=== PATIENT | male | born 1970 | race Caucasian/White ===

== ENCOUNTER → 2017-11-05 16:51 | Emergency (ER) | payer OTHER | END | disposition left against medical advice (07) | LOC: M ED 16:51 | DX: Z53.29 Procedure and treatment not carried out because of patient's decision for other reasons (principal) ==

== ENCOUNTER → 2022-05-19 | Outpatient (REF) | payer OTHER ==
[2022-05-19 17:21] LABS: BASO # 0.1 10^3/uL (0.0-0.2); BASO % 0.6 % (0.0-1.0); EOS # 0.2 10^3/uL (0.0-0.5); EOS % 2.6 % (0.0-3.0); HEMATOCRIT 44.8 % (42.0-52.0); HEMOGLOBIN 14.9 g/dl (13.5-17.5); LYMPH # 2.1 10^3/uL (1.5-5.0); LYMPH % 27.4 % (24.0-44.0); MEAN CORPUSCULAR HEMOGLOBIN 29.7 pg (27.0-33.0); MEAN CORPUSCULAR HGB CONC 33.3 g/dl (32.0-36.5); MEAN CORPUSCULAR VOLUME 89.2 fl (80.0-96.0); MONO # 0.4 10^3/uL (0.0-0.8); MONO % 5.7 % (2.0-8.0); NEUTROPHILS # 4.9 10^3/uL (1.5-8.5); NEUTROPHILS % 63.2 % (36.0-66.0); PLATELET COUNT, AUTOMATED 306 10^3/uL (150-450); RED BLOOD COUNT 5.02 10^6/uL (4.30-6.10); WHITE BLOOD COUNT 7.7 10^3/uL (4.0-10.0)
[2022-05-19 17:51] LABS: C REACTIVE PROTEIN QUANTITATIV < 0.40 MG/DL (<1.0)
[2022-05-19 17:52] LABS: ALBUMIN 4.2 G/DL (3.2-5.2); ALKALINE PHOSPHATASE 94 U/L (46-116); ALT/SGPT 35 U/L (7.0-40); AST/SGOT 23 U/L (<34); BILIRUBIN,TOTAL 0.8 MG/DL (0.3-1.2); BLOOD UREA NITROGEN 18 MG/DL (9-23); CALCIUM LEVEL 9.1 MG/DL (8.5-10.1); CARBON DIOXIDE LEVEL 29 MMOL/L (20-31); CHLORIDE LEVEL 104 MMOL/L (98-107); CREATININE FOR GFR 1.06 MG/DL (0.70-1.30); GLOMERULAR FILTRATION RATE > 60.0 (>56); GLUCOSE, FASTING 82 MG/DL (60-100); POTASSIUM SERUM 4.4 MMOL/L (3.5-5.1); SODIUM LEVEL 140 MMOL/L (136-145); TOTAL PROTEIN 7.3 G/DL (5.7-8.2)
[2022-05-19 17:54] LABS: TOTAL 25(OH) VITAMIN D 29.2 NG/ML (20.0-100.0)
[2022-05-19 18:11] LABS: HEPATITIS B SURFACE ANTIGEN NEGATIVE (NEGATIVE)
[2022-05-19 18:25] LABS: ERYTHROCYTE SEDIMENTATION RATE 10 mm/hr (0-20)
[2022-05-19 18:33] LABS: HEPATITIS B CORE ANTIBODY IGM NEGATIVE (NEGATIVE)
== END ==
LOC: M SFHCRHEU 13:59
PROVIDERS: ATTEND Internal Medicine Rheumatology
DX: R76.8 Other specified abnormal immunological findings in serum (principal); M25.50 Pain in unspecified joint; G56.03 Carpal tunnel syndrome, bilateral upper limbs

== ENCOUNTER 2023-01-27 05:15 | Emergency (ER) | payer OTHER ==
[~2023-01-27] VITALS: Ht 172.7 cm; Wt 75.4 kg
[2023-01-27] MEDS ORDERED: KETOROLAC 60MG 2ML VIAL IM ONE (06:40)
[2023-01-27] MEDS ORDERED: LIDOCAINE 5% (LIDODERM) PATCH TD ONE (06:40)
[2023-01-27] MEDS ORDERED: ACETAMINOPHEN TAB 650MG DOSE (2X325MG) PO ONE (06:40)
[2023-01-27] MEDS ORDERED: ASPE4PAD TOP (07:36)
[2023-01-27] MEDS ORDERED: KETO10TAB PO (07:36)
[2023-01-27 07:46] VITALS: BP 140/72; TEMP 96.8; O2SAT 98
== END 2023-01-27 07:49 | disposition home or self-care (01) ==
LOC: M ED 05:15
DX: S33.5XXA Sprain of ligaments of lumbar spine, initial encounter (principal); M51.36 Other intervertebral disc degeneration, lumbar region; Y92.9 Unspecified place or not applicable; Y93.9 Activity, unspecified; Y99.9 Unspecified external cause status; Z79.1 Long term (current) use of non-steroidal anti-inflammatories (NSAID); Z79.899 Other long term (current) drug therapy
CPT/HCPCS: 96372; 99283; J1885

== ENCOUNTER 2023-06-26 09:12 | Emergency (ER) | payer OTHER, SELFPAY ==
[~2023-06-26] VITALS: Ht 172.7 cm; Wt 76.0 kg
[~2023-06-26 09:12] MED LIST: ASPE4PAD TOP; KETO10TAB PO
[2023-06-26] MEDS ORDERED: ROPI1TAB73 (09:25)
[2023-06-26] MEDS ORDERED: GABA-282 (09:25)
[2023-06-26] MEDS ORDERED: OMEP40CA5 (09:25)
[2023-06-26] MEDS ORDERED: MONT10TA97 (09:25)
[2023-06-26] MEDS ORDERED: PSEU30TA86 PO (10:43)
[2023-06-26] MEDS ORDERED: FLON27.5 NARES (10:43)
[2023-06-26 11:04] VITALS: BP 122/77; TEMP 97.4; O2SAT 96
== END 2023-06-26 11:06 | disposition home or self-care (01) ==
LOC: M ED 09:12
DX: J34.89 Other specified disorders of nose and nasal sinuses (principal); R09.81 Nasal congestion; M54.50 Low back pain, unspecified; Z79.891 Long term (current) use of opiate analgesic; Z79.83 Long term (current) use of bisphosphonates; Z79.899 Other long term (current) drug therapy

== ENCOUNTER 2023-07-14 13:31 | Emergency (ER) | payer OTHER, SELFPAY ==
[~2023-07-14] VITALS: Ht 172.7 cm; Wt 75.8 kg
[~2023-07-14 13:31] MED LIST changes: +FLON27.5 NARES; +GABA-282; +MONT10TA97; +OMEP40CA5; +PSEU30TA86 PO; +ROPI1TAB73
[2023-07-14] MEDS: KETOROLAC 30 MG/ML 1ML VIAL IM ONE (17:30)
[2023-07-14] MEDS: LIDOCAINE 5% (LIDODERM) PATCH TD ONE (17:44)
[2023-07-14] MEDS ORDERED: KETO10TAB PO (17:59)
[2023-07-14 18:07] VITALS: BP 129/83; TEMP 97.6; O2SAT 97
== END 2023-07-14 18:14 | disposition home or self-care (01) ==
LOC: M ED 13:31
DX: M51.36 Other intervertebral disc degeneration, lumbar region (principal); K21.9 Gastro-esophageal reflux disease without esophagitis; F17.220 Nicotine dependence, chewing tobacco, uncomplicated; Z79.891 Long term (current) use of opiate analgesic; Z79.83 Long term (current) use of bisphosphonates; Z79.899 Other long term (current) drug therapy
CPT/HCPCS: 96372; 99283; J1885

== ENCOUNTER 2023-08-02 10:12 | Emergency (ER) | payer OTHER ==
[~2023-08-02] VITALS: Ht 172.7 cm; Wt 75.7 kg
[~2023-08-02 10:12] MED LIST changes: -GABA-282; +GABA-282 PO; -MONT10TA97; +MONT10TA97 PO; -OMEP40CA5; +OMEP40CA5 PO; -PSEU30TA86 PO; +PSEU30TA87 PO; -ROPI1TAB73; +ROPI1TAB73 PO
[2023-08-02] MEDS ORDERED: TIZA10TA PO (10:37)
[2023-08-02] MEDS ORDERED: ISOVUE-370 76% 100ML VIAL As Ordered ONE (10:51)
[2023-08-02 11:21] LABS: BASO % 0.5 % (0.0-1.0); EOS # 0.2 10^3/uL (0.0-0.5); EOS % 2.9 % (0.0-3.0); HEMATOCRIT 43.6 % (42.0-52.0); LYMPH # 1.6 10^3/uL (1.5-5.0); LYMPH % 19.8 % (24.0-44.0); MEAN CORPUSCULAR HEMOGLOBIN 31.3 pg (27.0-33.0); MEAN CORPUSCULAR HGB CONC 34.4 g/dl (32.0-36.5); MONO # 0.5 10^3/uL (0.0-0.8); MONO % 6.4 % (2.0-8.0); NEUTROPHILS # 5.6 10^3/uL (1.5-8.5); NEUTROPHILS % 70.2 % (36.0-66.0); PLATELET COUNT, AUTOMATED 284 10^3/uL (150-450); RED BLOOD COUNT 4.79 10^6/uL (4.30-6.10)
[2023-08-02 11:38] LABS: INR 0.94; PARTIAL THROMBOPLASTIN TIME 24.3 SECONDS (24.8-34.2); PROTHROMBIN TIME 12.3 SECONDS (12.5-14.5)
[2023-08-02] MEDS ORDERED: MED REC IN PROGRESS XX SCH (12:05)
[2023-08-02] MEDS: ASPIRIN 325 MG TAB PO ONE (12:43)
[2023-08-02] MEDS: ATORVASTATIN 20 MG TAB PO ONE (12:43)
[2023-08-02] MEDS ORDERED: FLUTISP NARES (13:01)
[2023-08-02 13:03] LABS: CHOLESTEROL LEVEL 225 MG/DL (<200); CHOLESTEROL RISK RATIO 5.48 (<5); CK-MB VALUE MASS < 1.0 NG/ML (<3.6); LDL CHOLESTEROL 118.8 MG/DL (<100); TRIGLYCERIDES LEVEL 326 MG/DL (<150)
[2023-08-02] MEDS ORDERED: HOME MED LIST COMPLETE! XX SCH (13:05)
[2023-08-02 13:06] LABS: CPK CREATINE PHOSPHOKINASE 97 U/L (46-171); MB/CK RELATIVE INDEX 1.03 (< OR =4); THYROID STIMULATING HORMONE 1.195 uIU/ML (0.55-4.78)
[2023-08-02 13:28] LABS: HEMOGLOBIN A1c 5.3 % (4.0-6.0)
[2023-08-02] MEDS ORDERED: ASPI81CH33 PO (16:39)
[2023-08-02] MEDS ORDERED: ATOR80TA59 PO (16:39)
[2023-08-02 17:45] VITALS: TEMP 97.4; O2SAT 94
[2023-08-02 17:56] VITALS: BP 119/77
== END 2023-08-02 18:17 | disposition left against medical advice (07) ==
LOC: M ED 10:12
DX: I63.9 Cerebral infarction, unspecified (principal); I65.22 Occlusion and stenosis of left carotid artery; K21.9 Gastro-esophageal reflux disease without esophagitis; M54.50 Low back pain, unspecified; G43.909 Migraine, unspecified, not intractable, without status migrainosus; H81.4 Vertigo of central origin; F10.10 Alcohol abuse, uncomplicated; Z86.16 Personal history of COVID-19; Z79.02 Long term (current) use of antithrombotics/antiplatelets; Z79.82 Long term (current) use of aspirin; Z79.891 Long term (current) use of opiate analgesic; Z79.83 Long term (current) use of bisphosphonates; Z79.899 Other long term (current) drug therapy; Z53.9 Procedure and treatment not carried out, unspecified reason
CPT/HCPCS: 36415; 70450; 70496; 70498; 70544; 70551; 71045; 80047; 80061; 82550; 82553; 83036; 84443; 84484; 85025; 85610; 85730; 86850; 86900; 86901; 93005; 93041; 94760; 99285; Q9967

== ENCOUNTER → 2023-08-11 | Outpatient (CLI) | payer OTHER ==
[~2023-08-11] MED LIST changes: +ASPI81CH33 PO; +ATOR80TA59 PO; +FLUTISP NARES; +TIZA10TA PO
== END ==
LOC: M CARPUL 13:50
PROVIDERS: ATTEND Emergency Medicine
DX: I25.10 Atherosclerotic heart disease of native coronary artery without angina pectoris (principal); Z86.73 Personal history of transient ischemic attack (TIA), and cerebral infarction without residual deficits

== ENCOUNTER 2024-03-25 12:08 | Emergency (ER) | payer OTHER ==
[~2024-03-25] VITALS: Ht 172.7 cm; Wt 70.2 kg
[~2024-03-25 12:08] MED LIST changes: +GABA-1172 PO; -GABA-282 PO
[2024-03-25] MEDS ORDERED: ISOVUE-370 76% 100ML VIAL As Ordered ONE (13:19)
[2024-03-25 13:24] LABS: BASO # 0.1 10^3/uL (0.0-0.2); BASO % 0.6 % (0.0-1.0); EOS # 0.1 10^3/uL (0.0-0.5); EOS % 0.9 % (0.0-3.0); HEMATOCRIT 44.5 % (42.0-52.0); HEMOGLOBIN 14.9 g/dl (13.5-17.5); LYMPH # 1.7 10^3/uL (1.5-5.0); LYMPH % 18.5 % (24.0-44.0); MEAN CORPUSCULAR HEMOGLOBIN 31.6 pg (27.0-33.0); MEAN CORPUSCULAR HGB CONC 33.5 g/dl (32.0-36.5); MEAN CORPUSCULAR VOLUME 94.5 fl (80.0-96.0); MONO # 0.5 10^3/uL (0.0-0.8); MONO % 4.9 % (2.0-8.0); NEUTROPHILS % 74.7 % (36.0-66.0); PLATELET COUNT, AUTOMATED 276 10^3/uL (150-450); RED BLOOD COUNT 4.71 10^6/uL (4.30-6.10); WHITE BLOOD COUNT 9.4 10^3/uL (4.0-10.0)
[2024-03-25 13:37] LABS: INR 1.01; PARTIAL THROMBOPLASTIN TIME 22.1 SECONDS (24.8-34.2); PROTHROMBIN TIME 13.6 SECONDS (12.5-14.5)
[2024-03-25] MEDS ORDERED: TOPI25TA10 (13:41)
[2024-03-25] MEDS ORDERED: MELO7.5T35 (13:41)
[2024-03-25 14:00] LABS: ALBUMIN 4.1 G/DL (3.2-5.2); ALKALINE PHOSPHATASE 88 U/L (40-129); ALT/SGPT 37 U/L (7.0-40); AST/SGOT 21 U/L (<34); BILIRUBIN,DIRECT 0.5 MG/DL (<0.4); BILIRUBIN,TOTAL 1.6 MG/DL (0.3-1.2); BLOOD UREA NITROGEN 16 MG/DL (9-23); CALCIUM LEVEL 9.8 MG/DL (8.5-10.1); CARBON DIOXIDE LEVEL 28 MMOL/L (20-31); CHLORIDE LEVEL 108 MMOL/L (98-107); CHOLESTEROL LEVEL 128 MG/DL (<200); CHOLESTEROL RISK RATIO 2.91 (<5); CREATININE FOR GFR 1.04 MG/DL (0.70-1.30); GLOMERULAR FILTRATION RATE > 60.0 (>56); GLUCOSE, FASTING 94 MG/DL (60-100); HDL CHOLESTEROL 43.9 MG/DL (>40); LDL CHOLESTEROL 54.3 MG/DL (<100); NON-HDL-C 84.1 MG/DL; POTASSIUM SERUM 4.6 MMOL/L (3.5-5.1); SODIUM LEVEL 144 MMOL/L (136-145); TOTAL PROTEIN 7.2 G/DL (5.7-8.2); TRIGLYCERIDES LEVEL 149 MG/DL (<150)
[2024-03-25] MEDS ORDERED: MEDR4PAK PO (14:26)
[2024-03-25 14:38] VITALS: BP 118/69; TEMP 97.7; O2SAT 98
== END 2024-03-25 14:50 | disposition home or self-care (01) ==
LOC: M ED 12:08
DX: M54.12 Radiculopathy, cervical region (principal); Z86.73 Personal history of transient ischemic attack (TIA), and cerebral infarction without residual deficits; Z79.82 Long term (current) use of aspirin; Z79.02 Long term (current) use of antithrombotics/antiplatelets; Z79.899 Other long term (current) drug therapy
CPT/HCPCS: 36415; 70450; 70496; 70498; 80047; 80048; 80061; 80076; 83605; 85025; 85610; 85730; 99283; Q9967

== ENCOUNTER → 2024-06-13 | Outpatient (CLI) | payer OTHER ==
[~2024-06-13] MED LIST changes: +MEDR4PAK PO; +MELO7.5T35; +TOPI25TA10
== END ==
LOC: M RAD 08:01
PROVIDERS: ATTEND Physician Assistant Surgical
DX: M50.30 Other cervical disc degeneration, unspecified cervical region (principal); M50.21 Other cervical disc displacement, high cervical region; M50.222 Other cervical disc displacement at C5-C6 level; M50.223 Other cervical disc displacement at C6-C7 level

== ENCOUNTER 2024-07-09 13:14 | Emergency (ER) | payer OTHER ==
[~2024-07-09] VITALS: Ht 172.7 cm; Wt 72.2 kg
[2024-07-09] MEDS ORDERED: METH-1164 (13:25)
[2024-07-09] MEDS ORDERED: ACET-907 PO (13:25)
[2024-07-09] MEDS: ACETAMINOPHEN 500 MG TAB PO ONE (17:10)
[2024-07-09 17:24] VITALS: BP 120/80; TEMP 96.2; O2SAT 99
== END 2024-07-09 17:34 | disposition home or self-care (01) ==
LOC: M ED 13:14
DX: M51.370 Other intervertebral disc degeneration, lumbosacral region with discogenic back pain only (principal); E78.5 Hyperlipidemia, unspecified; K21.9 Gastro-esophageal reflux disease without esophagitis; G43.909 Migraine, unspecified, not intractable, without status migrainosus; Z79.82 Long term (current) use of aspirin; Z79.02 Long term (current) use of antithrombotics/antiplatelets; Z79.899 Other long term (current) drug therapy

== ENCOUNTER 2024-10-22 08:26 | Emergency (ER) | payer OTHER ==
[~2024-10-22] VITALS: Ht 172.7 cm; Wt 71.9 kg
[~2024-10-22 08:26] MED LIST changes: +ACET-907 PO; +METH-1164; +TOPI-256; -TOPI25TA10
[2024-10-22] MEDS ORDERED: PRED20TA PO (10:24)
[2024-10-22 10:38] VITALS: BP 119/76; TEMP 97.8; O2SAT 99
== END 2024-10-22 10:39 | disposition home or self-care (01) ==
LOC: M ED 08:26
DX: M16.12 Unilateral primary osteoarthritis, left hip (principal); M25.552 Pain in left hip; K21.9 Gastro-esophageal reflux disease without esophagitis; M54.50 Low back pain, unspecified; Z79.82 Long term (current) use of aspirin; Z79.02 Long term (current) use of antithrombotics/antiplatelets; Z79.52 Long term (current) use of systemic steroids; Z79.899 Other long term (current) drug therapy